=== PATIENT | male | born 1955 | race African-American/Black ===

== ENCOUNTER 2019-04-05 22:37 | Inpatient (IN) | payer OTHER, MEDICAID ==
[~2019-04-05] VITALS: Ht 177.8 cm; Wt 68.0 kg
[~2019-04-05 22:37] MED LIST: ALLO100T PO; CLON1TAB PO; PRO1 PO
[2019-04-05] MEDS ORDERED: ONDANSETRON HCL 4MG/2ML INJ IV STA (22:56)
[2019-04-05] MEDS ORDERED: SODIUM CHLORIDE 0.9% 1000ML BAG (SEPSIS BOLUS) IV ONE (23:00)
[2019-04-05] MEDS ORDERED: PIPERACILLIN/TAZ 3.375G PREMIX 50 ML IV ONE (23:00)
[2019-04-05] MEDS ORDERED: VANCOMYCIN 1 G PREMIX 200 ML IV ONE (23:00)
[2019-04-05 23:27] LABS: BASOPHILS % 0.4 % (0.0-2.0); EOSINOPHILS % 0.5 % (0.0-5.0); HEMATOCRIT. 29.8 % (42.0-52.0); LYMPHOCYTES % 20.5 % (20.0-50.0); MEAN CORPUSCULAR HEMOGLOBIN 34.9 pg (28.0-32.0); MEAN PLATELET VOLUME 9.4 fl (7.4-10.4); MONOCYTES % 12.3 % (2.0-8.0); NEUTROPHILS % 66.3 % (40.0-76.0); PLATELET 184 x1000/uL (130-400); RED BLOOD CELL COUNT 2.87 mill/uL (4.7-6.1); RED CELL DISTRIBUTION WIDTH 15.2 % (11.6-14.6)
[2019-04-05 23:30] LABS: CHLORIDE 113 mEq/L (98-107)
[2019-04-05 23:32] LABS: INR 1.3; PROTHROMBIN TIME 13.1 sec (9.6-11.0)
[2019-04-05 23:43] LABS: BG BASE EXCESS -6.6 mmol/L (-2.0-2.0); BG CARBOXYHEMOGLOBIN 0.3 % (0.5-1.5); BG DEOXYHEMOGLOBIN 3.9 % (0.0-5.0); BG FRACTION INSPIRED OXYGEN 21; BG HCO3 ACT 16.5 mmol/L (22.0-26.0); BG OXYGEN SATURATION 96.1 % (92.0-98.5); BG OXYHEMOGLOBIN 95.8 % (94.0-97.0); BG PCO2 24.4 mmHg (35.0-45.0); BG PH 7.447 (7.350-7.450); BG PO2 90.5 mmHg (75.0-100.0); BG SAMPLE SITE LEFT RADIAL; BG TOTAL HEMOGLOBIN 8.2 g/dL (12.0-18.0); BG VENT MODE ROOM AIR
[2019-04-05 23:52] LABS: CLARITY URINE CLOUDY (CLEAR); COLOR URINE DARK YELLOW (YELLOW); KETONES URINE NEGATIVE (NEGATIVE); LEUKOCYTE ESTERASE URINE 3+ (NEGATIVE); NITRITE URINE NEGATIVE (NEGATIVE); OCCULT BLOOD URINE 2+ (NEGATIVE); PH URINE 6.5 (4.5-8.0); PROTEIN URINE 2+ (NEGATIVE); SPECIFIC GRAVITY URINE 1.012 (1.005-1.030); UROBILINOGEN URINE 0.2 E.U./dL (0.2-1.0)
[2019-04-06] VITALS (42 sets, daily range): BP systolic 79–146; BP diastolic 32–100
[2019-04-06] MEDS ORDERED: ACETAMINOPHEN 325MG TABLET PO PRN (09:45)
[2019-04-06] MEDS ORDERED: ONDANSETRON HCL 4MG/2ML INJ IV PRN (09:45)
[2019-04-06] MEDS ORDERED: PIPERACILLIN/TAZOBACTAM 2.25 G in DEXTROSE 5% WATER 50 ML IV SCH ×2 (10:45→13:00)
[2019-04-06] MEDS: DEXT 5%/0.45% NACL 1000ML 1,000 ML IV SCH (10:49)
[2019-04-06] MEDS ORDERED: SODIUM CHLORIDE 0.9% 1000ML BAG (SEPSIS BOLUS) IV SCH (11:45)
[2019-04-06] MEDS ORDERED: PNEUMOCOCCAL 23-VAL P-SAC VAC 0.5 ML IM ONE (15:15)
[2019-04-06] MEDS ORDERED: INFLUENZA VIRUS VACCINE(AFLURIA) 0.5ML SYR IM ONE (15:15)
[2019-04-06] MEDS: NOREPINEPHRINE 4 MG in DEXT 5% WATER 246 ML IV PRN (15:19)
[2019-04-06] MEDS: PIPERACILLIN/TAZOBACTAM 2.25 G in DEXTROSE 5% WATER 50 ML IV SCH (18:04)
[2019-04-06] MEDS: MIDODRINE HCL 5MG TABLET PO SCH (18:23)
[2019-04-06] MEDS ORDERED: VANCOMYCIN 1 G PREMIX 200 ML IV NR (21:30)
[2019-04-07] VITALS (98 sets, daily range): BP systolic 54–151; BP diastolic 20–117
[2019-04-07 06:01] LABS: BASOPHILS % 0.3 % (0.0-2.0); EOSINOPHILS % 1.8 % (0.0-5.0); HEMOGLOBIN. 9.1 g/dL (14.0-18.0); LYMPHOCYTES % 24.2 % (20.0-50.0); MEAN CORPUSCULAR HEMOGLOBIN 35.4 pg (28.0-32.0); MEAN CORPUSCULAR VOLUME 105.5 fL (80.0-94.0); MEAN PLATELET VOLUME 9.5 fl (7.4-10.4); MONOCYTES % 13.2 % (2.0-8.0); NEUTROPHILS % 60.5 % (40.0-76.0); PLATELET 158 x1000/uL (130-400); RED BLOOD CELL COUNT 2.56 mill/uL (4.7-6.1); RED CELL DISTRIBUTION WIDTH 14.9 % (11.6-14.6)
[2019-04-07] MEDS: PIPERACILLIN/TAZOBACTAM 2.25 G in DEXTROSE 5% WATER 50 ML IV SCH ×3 (06:05→17:34)
[2019-04-07 06:07] LABS: CHLORIDE 115 mEq/L (98-107)
[2019-04-07] MEDS: DEXT 5%/0.45% NACL 1000ML 1,000 ML IV SCH ×2 (06:12→07:58)
[2019-04-07] MEDS: MIDODRINE HCL 5MG TABLET PO SCH ×3 (09:00→17:00)
[2019-04-07] MEDS ORDERED: KCL 20MEQ/100ML PREMIX 100 ML IV SCH (10:00)
[2019-04-07] MEDS ORDERED: VANCOMYCIN 1 G PREMIX 200 ML IV SCH (13:00)
[2019-04-07] MEDS ORDERED: DIGOXIN 500MCG/2ML AMP IV NR (13:15)
[2019-04-07] MEDS: SODIUM CHLORIDE 0.9% 1,000 ML IV SCH (14:21)
[2019-04-07] MEDS ORDERED: VANCOMYCIN 750 MG PREMIX 150 ML IV SCH (16:00)
[2019-04-07 16:08] LABS: T4 FREE 1.35 ng/dL (0.76-1.46)
[2019-04-07] MEDS: NOREPINEPHRINE 4 MG in DEXT 5% WATER 246 ML IV PRN (21:32)
[2019-04-07 23:31] LABS: CREATINE KINASE 120 IU/L (39-308)
[2019-04-07 23:32] LABS: CREATINE KINASE MB FRACTION 2.4 ng/mL (0.5-3.6)
[2019-04-08] VITALS (89 sets, daily range): BP systolic 86–140; BP diastolic 35–104
[2019-04-08] MEDS: PIPERACILLIN/TAZOBACTAM 2.25 G in DEXTROSE 5% WATER 50 ML IV SCH ×3 (00:49→12:05)
[2019-04-08] MEDS: SODIUM CHLORIDE 0.9% 1,000 ML IV SCH ×3 (03:35→23:00)
[2019-04-08 05:13] LABS: HEMATOCRIT. 26.8 % (42.0-52.0); HEMOGLOBIN. 9.1 g/dL (14.0-18.0); MEAN CORPUSCULAR HEMOGLOBIN 35.4 pg (28.0-32.0); MEAN CORPUSCULAR VOLUME 104.1 fL (80.0-94.0); MEAN PLATELET VOLUME 9.2 fl (7.4-10.4); PLATELET 145 x1000/uL (130-400); RED BLOOD CELL COUNT 2.57 mill/uL (4.7-6.1); RED CELL DISTRIBUTION WIDTH 14.4 % (11.6-14.6)
[2019-04-08 05:18] LABS: CHLORIDE 117 mEq/L (98-107)
[2019-04-08 05:25] LABS: TOTAL IRON BINDING CAPACITY 78 ug/dL (250-450)
[2019-04-08 05:28] LABS: CREATINE KINASE 81 IU/L (39-308)
[2019-04-08 05:30] LABS: CREATINE KINASE MB FRACTION 2.1 ng/mL (0.5-3.6)
[2019-04-08 05:37] LABS: FOLIC ACID (FOLATE) SERUM 4.8 ng/mL (>5.38)
[2019-04-08] MEDS: ASPIRIN 81MG TABLET PO SCH (08:17)
[2019-04-08] MEDS: MIDODRINE HCL 5MG TABLET PO SCH ×3 (08:17→17:03)
[2019-04-08 10:30] LABS: PLATELET ESTIMATE NORMAL
[2019-04-08] MEDS ORDERED: IOHEXOL-300 50 ML BOTTLE IV ONE (12:07)
[2019-04-08] MEDS: PIPERACILLIN/TAZOBACTAM 3.375 G in DEXT 5% WATER 100 ML IV SCH (17:02)
[2019-04-08 17:11] LABS: CREATINE KINASE 80 IU/L (39-308)
[2019-04-08 17:12] LABS: CREATINE KINASE MB FRACTION 2.1 ng/mL (0.5-3.6)
[2019-04-09] VITALS (75 sets, daily range): BP systolic 64–141; BP diastolic 21–103
[2019-04-09] MEDS: PIPERACILLIN/TAZOBACTAM 3.375 G in DEXT 5% WATER 100 ML IV SCH ×4 (00:22→17:32)
[2019-04-09 05:02] LABS: BASOPHILS % 0.5 % (0.0-2.0); EOSINOPHILS % 1.7 % (0.0-5.0); HEMATOCRIT. 24.5 % (42.0-52.0); HEMOGLOBIN. 8.3 g/dL (14.0-18.0); LYMPHOCYTES % 27.5 % (20.0-50.0); MEAN CORPUSCULAR HEMOGLOBIN 35.4 pg (28.0-32.0); MEAN CORPUSCULAR VOLUME 105.2 fL (80.0-94.0); MONOCYTES % 13.5 % (2.0-8.0); NEUTROPHILS % 56.8 % (40.0-76.0); PLATELET 108 x1000/uL (130-400); RED BLOOD CELL COUNT 2.33 mill/uL (4.7-6.1); RED CELL DISTRIBUTION WIDTH 14.6 % (11.6-14.6)
[2019-04-09 05:03] LABS: CHLORIDE 117 mEq/L (98-107)
[2019-04-09] MEDS: SODIUM CHLORIDE 0.9% 1,000 ML IV SCH (05:38)
[2019-04-09] MEDS ORDERED: DIGOXIN 500MCG/2ML AMP IV NR (08:00)
[2019-04-09] MEDS ORDERED: POTASSIUM CHLORIDE 20MEQ/PACKET PO NR (08:00)
[2019-04-09] MEDS: ASPIRIN 81MG TABLET PO SCH (08:48)
[2019-04-09] MEDS: MIDODRINE HCL 5MG TABLET PO SCH ×3 (08:48→17:32)
[2019-04-09] MEDS ORDERED: BISACODYL 10MG SUPP PR PRN (10:00)
[2019-04-09] MEDS ORDERED: LACTULOSE 20G/30ML UDC PO NR (10:00)
[2019-04-09] MEDS ORDERED: DOCUSATE SODIUM 250MG CAPSULE PO SCH (10:00)
[2019-04-09] MEDS: DOCUSATE SODIUM SUGAR FREE 100MG/10ML UDC PO SCH (10:30)
[2019-04-09] MEDS: SODIUM CHLORIDE 0.45% 1,000 ML IV SCH ×3 (10:31→21:19)
[2019-04-09] MEDS ORDERED: SODIUM CHLORIDE 0.9% 500 ML IV SCH (12:15)
[2019-04-10] VITALS (100 sets, daily range): BP systolic 65–156; BP diastolic 21–120
[2019-04-10] MEDS: PIPERACILLIN/TAZOBACTAM 3.375 G in DEXT 5% WATER 100 ML IV SCH ×4 (03:00→22:08)
[2019-04-10] MEDS: NOREPINEPHRINE 4 MG in DEXT 5% WATER 246 ML IV PRN ×2 (05:06→20:13)
[2019-04-10] MEDS: SODIUM CHLORIDE 0.45% 1,000 ML IV SCH (05:08)
[2019-04-10 05:51] LABS: CHLORIDE 119 mEq/L (98-107)
[2019-04-10] MEDS: ASPIRIN 81MG TABLET PO SCH (08:04)
[2019-04-10] MEDS: MIDODRINE HCL 5MG TABLET PO SCH ×3 (08:04→17:00)
[2019-04-10] MEDS: DOCUSATE SODIUM SUGAR FREE 100MG/10ML UDC PO SCH (08:04)
[2019-04-10 08:13] LABS: BASOPHILS % 0.7 % (0.0-2.0); EOSINOPHILS % 2.1 % (0.0-5.0); HEMATOCRIT. 25.1 % (42.0-52.0); HEMOGLOBIN. 8.4 g/dL (14.0-18.0); LYMPHOCYTES % 27.7 % (20.0-50.0); MEAN PLATELET VOLUME 10.4 fl (7.4-10.4); MONOCYTES % 11.8 % (2.0-8.0); NEUTROPHILS % 57.7 % (40.0-76.0); PLATELET 105 x1000/uL (130-400); RED BLOOD CELL COUNT 2.39 mill/uL (4.7-6.1); RED CELL DISTRIBUTION WIDTH 14.6 % (11.6-14.6)
[2019-04-10] MEDS: SODIUM CHLORIDE 0.9% 1,000 ML IV SCH (08:30)
[2019-04-11] VITALS (85 sets, daily range): BP systolic 88–177; BP diastolic 28–97
[2019-04-11] MEDS: PIPERACILLIN/TAZOBACTAM 3.375 G in DEXT 5% WATER 100 ML IV SCH ×4 (03:14→20:07)
[2019-04-11] MEDS: SODIUM CHLORIDE 0.9% 1,000 ML IV SCH ×3 (03:15→20:08)
[2019-04-11 06:41] LABS: CHLORIDE 119 mEq/L (98-107)
[2019-04-11] MEDS ORDERED: CALCIUM CHLORIDE 1,000 MG in DEXT 5% WATER 90 ML IV SCH (07:15)
[2019-04-11] MEDS: ASPIRIN 81MG TABLET PO SCH (09:00)
[2019-04-11] MEDS: DOCUSATE SODIUM SUGAR FREE 100MG/10ML UDC PO SCH (10:16)
[2019-04-11] MEDS: FOLIC ACID 1MG TABLET PO SCH (10:17)
[2019-04-11] MEDS: MIDODRINE HCL 5MG TABLET PO SCH ×3 (10:18→17:53)
[2019-04-11 11:27] LABS: HEMATOCRIT. 26.7 % (42.0-52.0); HEMOGLOBIN. 8.8 g/dL (14.0-18.0); MEAN CORPUSCULAR HEMOGLOBIN 35.1 pg (28.0-32.0); MEAN CORPUSCULAR VOLUME 106.2 fL (80.0-94.0); MEAN PLATELET VOLUME 9.8 fl (7.4-10.4); PLATELET 147 x1000/uL (130-400); RED BLOOD CELL COUNT 2.52 mill/uL (4.7-6.1); RED CELL DISTRIBUTION WIDTH 14.6 % (11.6-14.6)
[2019-04-11 13:55] LABS: PLATELET ESTIMATE NORMAL
[2019-04-12] VITALS (75 sets, daily range): BP systolic 75–128; BP diastolic 41–98
[2019-04-12] MEDS: PIPERACILLIN/TAZOBACTAM 3.375 G in DEXT 5% WATER 100 ML IV SCH ×4 (03:04→20:28)
[2019-04-12] MEDS: DOCUSATE SODIUM SUGAR FREE 100MG/10ML UDC PO SCH (09:00)
[2019-04-12] MEDS: FOLIC ACID 1MG TABLET PO SCH (09:03)
[2019-04-12] MEDS: ASPIRIN 81MG TABLET PO SCH (09:03)
[2019-04-12] MEDS: MULTIVITAMINS,THER W-MINERALS TABLET PO SCH (09:03)
[2019-04-12] MEDS: MIDODRINE HCL 5MG TABLET PO SCH ×3 (09:05→17:02)
[2019-04-12] MEDS ORDERED: MORPHINE SULFATE 2 MG/ML CPJ (NOT FOR IM USE) IV PRN (11:00)
[2019-04-12] MEDS: SODIUM CHLORIDE 0.45% 1,000 ML IV SCH ×2 (11:16→21:50)
[2019-04-13] VITALS: BP 95/67
[2019-04-13] MEDS: PIPERACILLIN/TAZOBACTAM 3.375 G in DEXT 5% WATER 100 ML IV SCH ×3 (02:44→15:23)
[2019-04-13 04:00] VITALS: BP 143/98
[2019-04-13 08:00] VITALS: BP 96/70
[2019-04-13] MEDS: DOCUSATE SODIUM SUGAR FREE 100MG/10ML UDC PO SCH (09:06)
[2019-04-13] MEDS: MULTIVITAMINS,THER W-MINERALS TABLET PO SCH (09:07)
[2019-04-13] MEDS: FOLIC ACID 1MG TABLET PO SCH (09:07)
[2019-04-13] MEDS: MIDODRINE HCL 5MG TABLET PO SCH ×3 (09:07→16:25)
[2019-04-13] MEDS: ASPIRIN 81MG TABLET PO SCH (09:07)
[2019-04-13] MEDS ORDERED: DIATR MEGLU/DIATRIZOATE SOLN 120ML ONE (09:10)
[2019-04-13 12:00] VITALS: BP 95/69
[2019-04-13] MEDS ORDERED: IOHEXOL-350 100 ML BOTTLE ONE (14:26)
[2019-04-13 16:00] VITALS: BP 97/57
== END 2019-04-13 18:10 | disposition hospice, home (50) | DRG 871 ==
LOC: ER 22:37 → 7WST 04-06 03:09 → EDBEDREQ 04-06 03:14 → EDBEDREQTM 04-06 03:14 → EDRESERV 04-06 09:40 → ENRESERV 04-06 09:40 → CANRESERV 04-06 09:40 → EDBEDREQSVC 04-06 09:59 → ENRESERV 04-06 10:17 → 7WST 04-06 11:56 → MICUNO 04-06 12:31 → 6EST 04-12 22:50
PROVIDERS: ADMIT Internal Medicine; ATTEND Internal Medicine
DX: A41.89 Other specified sepsis (principal); R65.21 Severe sepsis with septic shock; E43 Unspecified severe protein-calorie malnutrition; N17.0 Acute kidney failure with tubular necrosis; G93.40 Encephalopathy, unspecified; K57.32 Diverticulitis of large intestine without perforation or abscess without bleeding; I48.19 Other persistent atrial fibrillation; N13.6 Pyonephrosis; E78.5 Hyperlipidemia, unspecified; D50.9 Iron deficiency anemia, unspecified; E53.8 Deficiency of other specified B group vitamins; E78.00 Pure hypercholesterolemia, unspecified; F03.90 Unspecified dementia, unspecified severity, without behavioral disturbance, psychotic disturbance, mood disturbance, and anxiety; F17.210 Nicotine dependence, cigarettes, uncomplicated; G40.909 Epilepsy, unspecified, not intractable, without status epilepticus; Z66 Do not resuscitate; R13.10 Dysphagia, unspecified; I95.9 Hypotension, unspecified; G62.9 Polyneuropathy, unspecified; I11.9 Hypertensive heart disease without heart failure; N32.0 Bladder-neck obstruction; N32.3 Diverticulum of bladder; E58 Dietary calcium deficiency; D53.9 Nutritional anemia, unspecified; B96.89 Other specified bacterial agents as the cause of diseases classified elsewhere; T68.XXXA Hypothermia, initial encounter; Z85.46 Personal history of malignant neoplasm of prostate; Z79.899 Other long term (current) drug therapy; Z68.21 Body mass index [BMI] 21.0-21.9, adult
CPT/HCPCS: 36415; 36600; 70551; 71045; 74176; 74177; 80048; 80061; 80202; 81003; 82140; 82375; 82550; 82553; 82607; 82728; 82746; 82805; 82962; 83036; 83540; 83550; 83605; 83880; 84134; 84145; 84439; 84443; 84484; 85379; 86850; 86900; 87077; 87186; 90686; 90732; 92610; 93005; 93306; 93970; 97163; 97167; 97530; 99291; A6261; J1160; J2405; J2543; J3370; J3480; J3490; J7030; J7040; J7060; Q9963; Q9967; A4315